=== PATIENT | male | born 1985 | race Caucasian/White ===

== ENCOUNTER 2021-06-02 17:53 | Emergency (ER) | payer BC, OTHER, SELFPAY ==
[2021-06-02 18:01] VITALS: BP 150/89; PULSE 100; RESP 16; TEMP 37.1; O2SAT 99
--- NOTE | 2021-06-02 18:17 | ED.EAR ---
HPI - Ear Problem General Chief complaint: Ear Stated complaint: Ear Pain Time Seen by Provider: 06/02/21 18:17 Source: patient Mode of arrival: ambulatory Limitations: no limitations History of Present Illness HPI Narrative: Luis M Haley is a 35 yo male with no PMH who comes to [facility] with complaints of left ear pain that started 2 days ago, his ear is edematous on outside and states that the pain has gotten worse for the last 2 days Related Data Allergies Allergy/AdvReac Type Severity Reaction Status Date / Time No Known Allergies Allergy Verified 06/02/21 18:16 Review of Systems Review of Systems: Narrative: CONSTITUTIONAL: Denies fever, chills, sweats. EYES: Denies visual changes, redness, discharge. ENT: Denies rhinorrhea, congestion, sore throat, left otalgia. CARDIOVASCULAR: Denies chest pain, palpitations, edema. RESPIRATORY: Denies dyspnea, wheezing, cough GASTROINTESTINAL: Denies abdominal pain, nausea, vomiting, diarrhea. GENITOURINARY: Denies dysuria, hematuria, abnormal discharge SKIN: Denies rash or itching. NEUROLOGIC: Denies numbness, or focal weakness. PSYCHIATRIC: Denies anxiety or depression. PMFSH Past Medical History Medical History No acute medical problems Family History Family History Grandparent Family history of cardiovascular disease Mother Family history of lung cancer Other Diabetes mellitus Social History Social History Smoking status: Never smoker Alcohol intake: never Comments At time of signature, I agree with nursing past medical, surgical, social and family history. There is no relevant family history pertinent to the presenting complaint. Blood pressure elevated due to pain Exam Narrative: Exam Narrative: GENERAL: This is a well-nourished, well-developed patient, in mild distress. HEAD: normocephalic, atraumatic. EYES: Sclera clear/white. Vision is grossly intact. EARS: External ears normal, auditory canals clear on R, L ear is edematous, tender to touch, canal edema with erythema and with drainage, TM on left difficult to visualize;hearing grossly intact. NOSE: External nose normal without nasal discharge, nares without redness, no rhinorrhea. THROAT: Mucous membranes moist, NECK: Neck supple, non-tender CARDIOVASCULAR: tachycardic rate and rhythm without murmurs, gallops, or rubs. RESPIRATORY: Clear to auscultation. Breath sounds equal bilaterally. No wheezes, rales, or rhonchi. GASTROINTESTINAL: Abdomen soft, non-tender, SKIN: warm, intact with no suspicious lesions or rash, good texture and turgor. NEURO: awake, alert, and oriented to person, place and time. There were no obvious focal neurologic abnormalities. Steady gait EXTREMITIES: Normal range of motion. BACK: Nontender without deformity Course Course Emergency Course: [facility] ear swelling and pain and exquisitely tender canal Started on prednisone, polymyxin eardrops, [place] Follow-up with PCP Vital Signs Vital signs: Vital Signs Temperature 98.7 F 06/02/21 18:01 Pulse Rate 100 06/02/21 18:01 Respiratory Rate 16 06/02/21 18:01 Blood Pressure 150/89 H 06/02/21 18:01 Pulse Oximetry 99 06/02/21 18:01 Temperature 98.7 F 06/02/21 18:01 Pulse Rate 100 06/02/21 18:01 Respiratory Rate 16 06/02/21 18:01 Blood Pressure 150/89 H 06/02/21 18:01 Pulse Oximetry 99 06/02/21 18:01 Medical Decision Making Differential Diagnosis Differential Diagnosis: Otitis media versus otitis externa versus other eustachian tube dysfunction Vital Signs Vital Signs: Vital Signs Temperature 98.7 F 06/02/21 18:01 Pulse Rate 100 06/02/21 18:01 Respiratory Rate 16 06/02/21 18:01 Blood Pressure 150/89 H 06/02/21 18:01 Pulse Oximetry 99 06/02/21 18:01 [place]
== END 2021-06-02 18:38 | disposition home or self-care (01) ==
PROVIDERS: Emergency Provider Nurse Practitioner
DX: H60.312 Diffuse otitis externa, left ear (principal)
CPT/HCPCS: 99213; G0463

== ENCOUNTER 2021-08-15 11:38 | Emergency (ER) | payer BC, OTHER, SELFPAY ==
[2021-08-15 11:47] VITALS: BP 148/96; PULSE 116; RESP 18; TEMP 38.2; O2SAT 100
--- NOTE | 2021-08-15 12:11 | ED.EAR ---
HPI - Ear Problem General Chief complaint: Ear Stated complaint: Ear Pain Source: patient and RN notes reviewed Limitations: no limitations History of Present Illness HPI Narrative: The patient, previously mostly healthy and works at a [employer] service, presents with fever, ear discomfort. Patient states he wears earplugs frequently and had prior OE; he now has a shorter couple day history of chills, and right ear discomfort with swelling and scant discharge localized to the canal. Symptoms are mild to moderate, worse with the palpation; no facial changes, diabetes known, numbness/weakness, vertigo but there is decreased hearing acuity, pain radiates anteroinferiorly to TMJ. Patient advised he has an infection and to follow-up with ENT or hospital if not improved Related Data Allergies Allergy/AdvReac Type Severity Reaction Status Date / Time No Known Allergies Allergy Verified 06/02/21 18:16 Review of Systems Review of Systems: The patient has been informed that they may have pre-hypertension or Hypertension based on a BP reading in the department. I recommend that the patient call the primary care provider listed on their discharge instructions or a physician of their choice this week to arrange follow up for further evaluation of possible pre-hypertension or Hypertension General/Constitutional: No weight loss,fever Eyes: N0: Redness,discharge Ears/Nose/Throat: No: Epistaxis, REPORTS ear discharge Respiratory: Denies: Hemoptysis Gastrointestinal: No Vomiting, Bleeding-rectal Skin: No Lumps, eruption Neurologic: No Focal Weakness,Sz Hematologic: Denies: Petechiae/Purpura Psychiatric: No: Suicida ideationl All Other Systems: Reviewed and Negative PMFSH Past Medical History Medical History No acute medical problems Family History Family History Grandparent Family history of cardiovascular disease Mother Family history of lung cancer Other Diabetes mellitus Social History Social History Smoking status: Never smoker Alcohol intake: never Comments At time of signature, agree with nursing past medical, surgical, social and family history. There is no relevant family history pertinent to the presenting complaint Exam Narrative: General Appearance: Well appearing, Well nourished, No distress EYE: PERRLA, EOMI Ears: Right EAC with near complete swelling and mild mucopus, TMs not seen; left external ear normal, Auditory canal normal Nose: Normal nose, Nares clear Mouth/Throat: Normal appearing, Normal lips Neck: Supple, No adenopathy Respiratory: Airway patent, No respiratory distress Skin: Warm, Dry Neurological: A&O x3, CN II-X intact Psychiatric: Normal mood, Normal affect Course Vital Signs Vital signs: Vital Signs Temperature 100.8 F H 08/15/21 11:47 Pulse Rate 116 H 08/15/21 11:47 Respiratory Rate 18 08/15/21 11:47 Blood Pressure 148/96 H 08/15/21 11:47 Pulse Oximetry 100 08/15/21 11:47 Temperature 100.8 F H 08/15/21 11:47 Pulse Rate 116 H 08/15/21 11:47 Respiratory Rate 18 08/15/21 11:47 Blood Pressure 148/96 H 08/15/21 11:47 Pulse Oximetry 100 08/15/21 11:47 Medical Decision Making Vital Signs Vital Signs: Vital Signs Temperature 100.8 F H 08/15/21 11:47 Pulse Rate 116 H 08/15/21 11:47 Respiratory Rate 18 08/15/21 11:47 Blood Pressure 148/96 H 08/15/21 11:47 Pulse Oximetry 100 08/15/21 11:47 Temperature 100.8 F H 08/15/21 11:47 Pulse Rate 116 H 08/15/21 11:47 Respiratory Rate 18 08/15/21 11:47 Blood Pressure 148/96 H 08/15/21 11:47 Pulse Oximetry 100 08/15/21 11:47 Lab Data Labs: Lab Results 08/15/21 Range/Units 12:18 POC Capillary Glucose 95 (65-105) mg/dl Discharge Plan Discharge Clinical Impression: Cellulit
[2021-08-15 12:20] LABS: Glucose Point of Care 95 mg/dl (65-105)
== END 2021-08-15 12:26 | disposition home or self-care (01) ==
PROVIDERS: Emergency Provider Emergency Medicine
DX: H60.11 Cellulitis of right external ear (principal); E11.9 Type 2 diabetes mellitus without complications
CPT/HCPCS: 82948; 99213; G0463

== ENCOUNTER 2021-12-13 15:42 | Emergency (ER) | payer BC, SELFPAY ==
--- NOTE | 2021-12-13 15:49 | ED.WOUNDLAC ---
HPI - Wound/Laceration General Chief Complaint: Wound/Laceration Stated Complaint: cut right leg Time Seen by Provider: 12/13/21 15:49 Source: patient, RN notes reviewed and old records reviewed Mode of arrival: ambulatory Limitations: no limitations History of Present Illness HPI narrative: 36-year-old male presents to the [facility] with a cut to the right leg. States he was working on a trailer when his leg scraped up against something. Laceration noted mid right anterior lower leg. Injury occurred approximately 1030 this morning Thinks Tdap was at least 5 years ago may be 6 Walking with a normal gait Related Data Allergies Allergy/AdvReac Type Severity Reaction Status Date / Time No Known Allergies Allergy Verified 12/13/21 15:46 Review of Systems Review of Systems: All systems reviewed & are unremarkable except as noted in HPI and below Constitutional: Constitutional: Reports no additional constitutional complaints, Denies chills and Denies fever(s) Eyes: Eyes: Reports no additional eye complaints ENT: Reports system reviewed and no additional complaints, except as documented Cardiovascular: Cardiovascular: Reports no additional cardiovascular complaints Respiratory: Respiratory: Reports no additional respiratory complaints Gastrointestinal: Gastrointestinal: Reports no additional gastrointestinal complaints Musculoskeletal: Musculoskeletal: Reports no additional musculoskeletal complaints Integumentary/Breasts: Skin/Breast: Reports as per HPI Neurologic: Reports system reviewed and no additional complaints, except as documented Allergic/Immunologic: Allergic/Immunologic: Reports no additional allergic/immunologic complaints PMFSH Past Medical History Medical History (Updated 12/13/21 @ 15:58 by Gila Reyes) No acute medical problems Psoriasis Surgical History Surgical History (Updated 12/13/21 @ 15:58 by Gila Reyes) No pertinent past surgical history Family History Family History Grandparent Family history of cardiovascular disease Mother Family history of lung cancer Other Diabetes mellitus Social History Social History Smoking status: Never smoker Alcohol intake: never Comments At the time of my signature, I reviewed and agree with the nursing past medical, surgical, social, and family history. There is no relevant family history pertinent to the patient complaint. Exam Const: General: no acute distress and alert Nutritional Appearance: well nourished and obese Orientation/consciousness: patient oriented x3 Limitations: no limitations HENMT: Head: normal to inspection Ears: external ears normal Eyes: Conjunctivae: conjunctivae normal Pupils: Equal, round and reactive pupils present Neck: Neck: normal visual inspection, no lymphadenopathy and no meningeal signs Chest: Chest palpation & inspection: normal inspection of the chest Resp: Effort & Inspection: normal respiratory effort Auscultation: clear to auscultation bilaterally Back/Spine/Pelvis: Back: no CVA tenderness Skin: General skin exam: normal color Wounds: wounds noted flap right anterior lower leg size (5.5 cm); no drainage and without any surrounding erythema Neuro: General: patient oriented x3, moves all extremities, no meningeal signs and no focal motor deficits Speech: normal speech Gait exam (Neuro): Normal gait present Extrem: General: normal to inspection Psych: Appearance: grossly normal and well kempt Mental Status: mental status grossly normal Affect: normal affect Attitude: cooperative Thought content: Yes Normal thought content present Course Course Emergency Course: Discharge instructions reviewed with patient, as well as provided in writing per nursing staff. The instructions also include specific and strict return/GO TO THE ER as well as f/u information. All questions have
[2021-12-13 15:50] VITALS: BP 147/107; PULSE 91; RESP 16; TEMP 37; O2SAT 98
[2021-12-13] MEDS: LIDOCAINE HCL 1% LOCAL INJ 20 ML VIAL 5 ML INFILTRATE (16:20)
[2021-12-13] MEDS: TETANUS,DIPHTHERIA,AC PERTUSSIS ADULT (0.5 ML) BOOSTRIX IM (16:32)
== END 2021-12-13 16:40 | disposition home or self-care (01) ==
PROVIDERS: Emergency Provider Nurse Practitioner
DX: S81.811A Laceration without foreign body, right lower leg, initial encounter (principal); W45.8XXA Other foreign body or object entering through skin, initial encounter; Z23 Encounter for immunization
CPT/HCPCS: 12002; 90471; 90715; 99213; G0463

== ENCOUNTER 2022-12-14 15:52 | Emergency (ER) | payer BC, OTHER, SELFPAY ==
--- NOTE | 2022-12-14 15:54 | ED.SKABFB ---
HPI - Skin/Abscess/Foreign Bdy General Chief complaint: Skin/Abscess/Foreign Body Stated complaint: Rash on Body Time Seen by Provider: 12/14/22 16:21 Source: patient and RN notes reviewed Mode of arrival: ambulatory Limitations: no limitations History of Present Illness HPI narrative: 37-year-old male presents with concern for psoriasis flare-up. He reports a history of psoriasis. Reports when he notices a flare he usually goes to a tanning bed and that improves his symptoms, however he tried at this time and it did not resolve his symptoms. He reports prednisone has treated his flare-ups in the past. MD complaint: rash Related Data Allergies Allergy/AdvReac Type Severity Reaction Status Date / Time No Known Allergies Allergy Verified 12/14/22 16:01 Review of Systems Review of Systems: CONSTITUTIONAL: Denies malaise, chills, sweats, or fever. ENT: Denies rhinorrhea, congestion, swollen lips, swollen tongue CARDIOVASCULAR: Denies chest pain, palpitations, or edema. RESPIRATORY: Denies cough or dyspnea. GASTROINTESTINAL: Denies abdominal pain, nausea, vomiting SKIN: Reports generalized rash MUSCULOSKELETAL: Denies joint pain or myalgia. NEUROLOGIC: Denies headache. All systems reviewed & are unremarkable except as noted in HPI and below PMFSH Past Medical History Medical History (Updated 12/14/22 @ 16:19 by Gila Lowe NP) No acute medical problems Psoriasis Surgical History Surgical History (Updated 12/13/21 @ 15:58 by Gila Reyes APRN) No pertinent past surgical history Family History Family History Grandparent Family history of cardiovascular disease Mother Family history of lung cancer Other Diabetes mellitus Social History Social History Smoking status: Never smoker Alcohol intake: never Comments At time of signature, agree with nursing past medical, surgical, social and family history. There is no relevant family history pertinent to the presenting complaint Exam Narrative: GENERAL: Well-appearing, well-nourished, and in no acute distress. HEAD: Normocephalic, atraumatic. EYES: PERRLA, conjunctivae clear, and EOMI. ENT: Mucous membranes moist. Oropharynx without edema, erythema or lesions. NECK: Supple. No lymphadenopathy CHEST: Clear to auscultation. No respiratory distress. HEART: Regular rate and rhythm. SKIN: Warm, dry. generalized plaque-like rash noted to both hands and arms with some areas of excoriation NEURO: Alert and oriented x3. PSYCH: Normal mood and affect Course Course Emergency Course: Patient is aware of diagnosis, understands and agrees to treatment plan. Anticipatory guidance given. Patient agrees to follow-up as directed and is aware of reasons to seek care at the emergency department. Portions of this record may have been created with voice recognition software Level of Care: Express Care Visit Vital Signs Vital signs: Reviewed. MDM - Skin/Abscess/Foreign Bdy MDM Narrative Medical decision making narrative: Does not appear at this time to be erythema multiforme, bullous, SJS, TEN; no evidence at this time to suggest RMSF, endocarditis or Lyme disease; patient looks well, nontoxic and is tolerating oral intake; no neurologic signs or symptoms; no headache, photophobia or neck pain; afebrile; appropriate for initial outpatient treatment; discussed the importance of follow-up, patient agrees; question, viral exanthema, contact dermatitis, allergic dermatitis, eczema, urticaria, psoriasis. No soft palate or uvula edema, no tongue, lip edema or other mucosal involvement, no respiratory compromise, no stridor, no wheezing, no wheezing, no history of syncope, no hypotension, no nausea, vomiting, or diarrhea. Instructed patient to go to nearest ER immediately for any worsening symptoms including but not limited to: fever, spreading rash, pain, sore throat,
[2022-12-14 16:00] VITALS: BP 154/97; PULSE 79; RESP 16; TEMP 36.7; O2SAT 99
[2022-12-14 16:02] VITALS: BP 154/97; PULSE 79; RESP 16; TEMP 36.7; O2SAT 99
== END 2022-12-14 16:24 | disposition home or self-care (01) ==
PROVIDERS: Emergency Provider Nurse Practitioner
DX: L40.9 Psoriasis, unspecified (principal)
CPT/HCPCS: 99213; G0463

== ENCOUNTER 2023-12-09 08:17 | Emergency (ER) | payer BC, OTHER, SELFPAY ==
[2023-12-09 09:00] VITALS: BP 141/90; PULSE 95; RESP 18; TEMP 37.3; O2SAT 98
--- NOTE | 2023-12-09 09:32 | ED.GENADULT ---
HPI - General Adult General Chief complaint: Upper Respiratory Infection Stated complaint: Sore Throat Source: patient Mode of arrival: ambulatory Limitations: no limitations History of Present Illness HPI narrative: Patient presents for evaluation of sore throat. Symptom onset 2 days ago. His children currently have strep. He has a history of psoriasis and indicates that it has flared on his trunk and extremities x 4 since the time he has experienced a sore throat. He reports fever but denies chills, nausea, vomiting, diarrhea. He has a mild cough. He does not smoke. Related Data Allergies Allergy/AdvReac Type Severity Reaction Status Date / Time No Known Allergies Allergy Verified 12/09/23 08:27 Review of Systems Review of Systems: CONSTITUTIONAL: reports fever. Denieschills, or sweats. EYES: Denies visual changes, redness, or discharge. ENT: Reports sore throat. Denies rhinorrhea, congestion, or otalgia. CARDIOVASCULAR: Denies chest pain, palpitations, or edema. RESPIRATORY: Reports cough. Denies dyspnea. GASTROINTESTINAL: Denies abdominal pain, nausea, vomiting, or diarrhea. GENITOURINARY: Denies dysuria or hematuria. SKIN:Reports psoriatic plaques to torso and extremities x 4 MUSCULOSKELETAL: Denies back pain, joint pain, or myalgia. NEUROLOGIC: Denies headache, numbness, dizziness, or weakness. PSYCHIATRIC: Denies anxiety or depression. PMFSH Past Medical History Medical History No acute medical problems Psoriasis Surgical History Surgical History No pertinent past surgical history Family History Family History Grandparent Family history of cardiovascular disease Mother Family history of lung cancer Other Diabetes mellitus Social History Social History Smoking status: Never smoker Alcohol intake: never Exam Narrative: GENERAL: Well-appearing, well-nourished, and in no acute distress. HEAD: Normocephalic, atraumatic. EYES: PERRLA and EOMI. ENT: Nares clear, no rhinorrhea or epistaxis. Mucous membranes moist. There is posterior pharyngeal erythema without exudate. Uvula is midline. Bilateral TMs pearly tenorio nonbulging NECK: Supple. No adenopathy or masses. No carotid bruits or JVD CHEST: Clear to auscultation. No respiratory distress. No wheezes rales or rhonchi HEART: Regular rate and rhythm. No murmur heard. Normal peripheral pulses. ABDOMEN: Soft, nontender, nondistended, normal active bowel sounds. EXTREMITIES: Normal range of motion. No edema. SKIN: There are psoriatic plaques noted to his torso and extremities x 4. NEURO: No focal deficits. Alert and oriented x3. PSYCH: Normal mood and affect. Course Course Emergency Course: This is a 38-year-old male who presented for evaluation of a sore throat. Rapid strep positive. Will treat with amoxicillin. His psoriasis has flared as result of this. Upon review of medical literature it appears that there is an association between psoriasis and strep throat. Will place him on oral steroid taper. Once complete he may use betamethasone. Advised he should not apply to his face. He should follow up with PCP and go to the ER for worsening symptoms. Pt in agreement with plan of care. Level of Care: Express Care Visit Vital Signs Vital signs: Vital Signs Temperature 37.3 C 12/09/23 09:00 Pulse Rate 95 12/09/23 09:00 Respiratory Rate 18 12/09/23 09:00 Blood Pressure 141/90 H 12/09/23 09:00 Pulse Oximetry 98 12/09/23 09:00 Temperature 37.3 C 12/09/23 09:00 Pulse Rate 95 12/09/23 09:00 Respiratory Rate 18 12/09/23 09:00 Blood Pressure 141/90 H 12/09/23 09:00 Pulse Oximetry 98 12/09/23 09:00 Medical Decision Making Vital Signs Vital
== END 2023-12-09 09:35 | disposition home or self-care (01) ==
PROVIDERS: Emergency Provider Nurse Practitioner
DX: J02.0 Streptococcal pharyngitis (principal); L40.9 Psoriasis, unspecified
CPT/HCPCS: 87880; 99213; G0463

== ENCOUNTER 2024-03-21 08:51 | Emergency (ER) | payer BC, OTHER, SELFPAY ==
[2024-03-21 09:04] VITALS: BP 141/97; PULSE 70; RESP 16; TEMP 36.6; O2SAT 99
--- NOTE | 2024-03-21 09:27 | ED.SKABFB ---
HPI - Skin/Abscess/Foreign Bdy General Chief complaint: Skin/Abscess/Foreign Body Stated complaint: rash on body Time Seen by Provider: 03/21/24 09:19 Source: patient, RN notes reviewed and old records reviewed Mode of arrival: ambulatory Limitations: no limitations History of Present Illness HPI narrative: Patient presents today complaining of a one-week history of psoriasis flare. States he is not 100% sure of the cause but it may have been due to a chemical exposure at work. He has not had a flare for some time and typically goes the tanning bed when this happens and can stop it from getting worse, but it has tried that and it did not work. He has also tried Vaseline. Outbreak has occurred in the groin and lower abdomen, bilateral knees, bilateral antecubital fossa, bilateral hands. Typically he uses a prednisone flare and topical steroids to resolve his rash. He does not have a PCP. Last visit to [facility] for psoriasis flare was 12/09/2023. Related Data Allergies Allergy/AdvReac Type Severity Reaction Status Date / Time No Known Allergies Allergy Verified 03/21/24 09:18 Review of Systems Review of Systems: CONSTITUTIONAL: Denies body aches, fever, chills, or sweats. EYES: Denies visual changes, redness, or discharge. ENT: Denies rhinorrhea, congestion, sore throat, or otalgia. CARDIOVASCULAR: Denies chest pain, palpitations, or edema. RESPIRATORY: Denies cough or dyspnea. GASTROINTESTINAL: Denies abdominal pain, nausea, vomiting, or diarrhea. GENITOURINARY: Denies dysuria or hematuria. SKIN: +rash MUSCULOSKELETAL: Denies back pain, joint pain, or myalgia. NEUROLOGIC: Denies headache, numbness, tingling, or weakness. PSYCH: Denies depression or anxiety. [facility] Past Medical History Medical History (Updated 03/21/24 @ 09:38 by Radha Rasmussen, NA, BC) Psoriasis Surgical History Surgical History No pertinent past surgical history Family History Family History Grandparent Family history of cardiovascular disease Mother Family history of lung cancer Other Diabetes mellitus Social History Social History Smoking status: Never smoker Alcohol intake: never Comments At time of signature, I have reviewed and agree with nursing past medical, surgical, social and family history unless otherwise noted. Please see nursing chart for further information. There is no relevant family history pertinent to the presenting complaint Exam Narrative: GENERAL: Well-appearing, well-nourished, and in no acute distress. HEAD: Normocephalic, atraumatic. EYES: EOMI. No redness or drainage. Conjunctivae normal. ENT: Mucous membranes pink and moist. NECK: Normal AROM. CHEST: No respiratory distress. EXTREMITIES: Normal range of motion. No edema. SKIN: Warm, dry. Capillary refill normal. Normal skin turgor. +clusters of silver, scaly lesions, surrounded by pink border to the bilateral patella area, bilateral antecubital fossa, groin, lower abdomen fold, bilateral dorsums of the hands. No evidence of bacterial infection. NEURO: No focal deficits. Alert and oriented x3. Gait steady. PSYCH: Normal affect. No signs of depression or anxiety. Course Course Level of Care: Express Care Visit Vital Signs Vital signs: Vital Signs Temperature 97.9 F 03/21/24 09:04 Pulse Rate 70 03/21/24 09:04 Respiratory Rate 16 03/21/24 09:04 Blood Pressure 141/97 H 03/21/24 09:04 Pulse Oximetry 99 03/21/24 09:04 Oxygen Delivery Room Air 03/21/24 09:04 Temperature 97.9 F 03/21/24 09:04 Pulse Rate 70 03/21/24 09:04 Respiratory Rate 16 03/21/24 09:04 Blood Pressure 141/97 H 03/21/24 09:04 Pulse Oximetry 99 03/21/24 09:04 Oxygen Delivery Room Air 03/21/24 09:04 Reviewed MDM - Skin/Abscess/
== END 2024-03-21 09:39 | disposition home or self-care (01) ==
PROVIDERS: Emergency Provider Nurse Practitioner
DX: L40.9 Psoriasis, unspecified (principal)
CPT/HCPCS: 99213; G0463

== ENCOUNTER 2024-10-26 08:24 | Emergency (ER) | payer BC, OTHER, SELFPAY ==
[2024-10-26 08:25] VITALS: BP 132/90; PULSE 69; RESP 18; TEMP 36.4; O2SAT 100
--- NOTE | 2024-10-26 08:27 | ED.DENTAL ---
HPI - Dental/Oral General Chief complaint: Dental/Oral Stated complaint: Dental Pain Time Seen by Provider: 10/26/24 08:29 Source: patient, RN notes reviewed and old records reviewed Mode of arrival: ambulatory Limitations: no limitations History of Present Illness HPI Narrative: 39-year-old male presents to the [facility] with complaints of dental pain. Right lower into the anterior portion. Redness and inflammation noted from premolar through the front of the gums. Has very poor dentition. States that he does have a dental appointment at [facility] next month. History of multiple extractions Onset (ago): week(s) (2) Related Data Allergies Allergy/AdvReac Type Severity Reaction Status Date / Time No Known Allergies Allergy Verified 10/26/24 08:28 Review of Systems Review of Systems: All systems reviewed & are unremarkable except as noted in HPI and below Constitutional: Constitutional: Reports no additional constitutional complaints ENT: Reports as per HPI and Reports dental pain Cardiovascular: Cardiovascular: Reports no additional cardiovascular complaints, Denies chest pain and Denies dyspnea Respiratory: Respiratory: Reports no additional respiratory complaints, Denies chest congestion, Denies cough and Denies dyspnea Gastrointestinal: Gastrointestinal: Reports no additional gastrointestinal complaints, Denies abdominal pain, Denies nausea and Denies vomiting Musculoskeletal: Musculoskeletal: Reports no additional musculoskeletal complaints Integumentary/Breasts: Skin/Breast: Reports system reviewed and no additional complaints, except as docu PMFSH Past Medical History Medical History Psoriasis Surgical History Surgical History No pertinent past surgical history Family History Family History Grandparent Family history of cardiovascular disease Mother Family history of lung cancer Other Diabetes mellitus Social History Social History Smoking status: Never smoker Alcohol intake: never Comments At the time of my signature, I reviewed and agree with the nursing past medical, surgical, social, and family history. There is no relevant family history pertinent to the patient complaint. Exam Const: General: cooperative, healthy appearing, comfortable, no acute distress, well developed, alert and well nourished Nutritional Appearance: well nourished Orientation/consciousness: patient oriented x3 Limitations: no limitations HENMT: Head: normal to inspection Ears: hearing grossly normal bilaterally and external ears normal Face/Nose/Sinus: Normal external nose present, normal facial exam and face symmetric Face and sinus: normal facial exam and face symmetric Mouth: Yes Normal oral and palatal mucosa present, Yes lip normal and Yes tongue normal Teeth and gingiva: abnormal tooth and associated gingiva (Right lower- anterior erythema to the gingiva, multiple decayed teeth) and poor dentition Eyes: General: appearance normal, both eyes and all related structures Alignment and Position: alignment normal Periorbital: periorbital findings normal Neck: Neck: normal visual inspection, full ROM, no lymphadenopathy and no meningeal signs Chest: Chest palpation & inspection: normal inspection of the chest Resp: Effort & Inspection: normal respiratory effort and able to speak in complete sentences Cardio: Rate: regular rate Skin: General skin exam: normal color and no rashes or lesions noted Lesions: no lesions Rashes: no rashes Wounds: no wounds Neuro: General: patient oriented x3, gait normal, tone normal, moves all extremities and no meningeal signs Cognition (Neuro): normal cognition Speech: normal speech Gait exam (Neuro): Normal gait present Extrem: General: normal to inspection, full ROM, capillary refill normal and normal gait Psych: Appearance: grossly normal and well kempt Mental Status: mental status grossly normal Speech and movement: Normal speech and movement present and Clear speech present Affect: normal affect Attitude: cooperative Course Course Level of Care: Express Care Visit Vital Signs Vital signs: Vital Signs Temperature 97.5 F L 10/26/24 08:25 Pulse Rate 69 10/26/24 08:25 Respiratory Rate 18 10/26/24 08:25 Blood Pressure 132/90 10/26/24 08:25 Pulse Oximetry 100 10/26/24 08:25 Oxygen Delivery Room Air 10/26/24 08:25 Temperature 97.5 F L 10/26/24 08:25 Pulse Rate 69 10/26/24 08:25 Respiratory Rate 18 10/26/24 08:25 Blood Pressure 132/90 10/26/24 08:25 Pulse Oximetry 100 10/26/24 08:25 Oxygen Delivery Room Air 10/26/24 08:25 Reviewed MDM - Dental/Oral MDM Narrative Medical decision making narrative: Patient sitting in exam room. Nontoxic, vitals stable. Patient in no acute distress. Patient presents with dental pain, multiple extracted teeth, multiple decayed teeth, significant erythema with swelling into the right lower anterior portion of the gums. Patient is appropriate for outpatient treatment with antibiotics, close follow-up which is already scheduled per patient. Discharge instructions reviewed with patient, as well as provided in writing per nursing staff. The instructions also include specific and strict return/GO TO THE ER as well as f/u information. All questions have been answered, and the patient deny any further questions with discharge and discharge plan. Some parts of this dictation were generated by voice recognition software and may contain typographical and/or grammatical inaccuracies. Differential Diagnosis Differential diagnosis: Likely gingival abscess, dental caries, toothache and dental abscess Critical Care Time Critical Care Time Critical Care Time: No Discharge Plan Discharge Clinical Impression: Dental infection, Teeth decayed Patient Disposition: Home, Self-Care Condition: Stable Instructions: Antibiotic Form, Dental Abscess (ED), Toothache (ED) Additional Instructions: Finish the entire course of antibiotics & use the mouthwash. After every time you eat be sure to use salt water rinses. Apply ice to face to help with pain. Take Tylenol alternating with Motrin as needed for pain. You can alternate every 4 hours You need to follow-up with a dental provider as soon as possible for further evaluation and treatment. A list of dental providers has been given to you Follow up with a Primary Care Provider (PCP) about medical needs. A PCP can help keep you healthy by preventive medicine and screening. Go to the ER for New or worsening symptoms. Patient Language: Lao Prescriptions: New amoxicillin 875 mg tablet 875 mg PO Q12H Qty: 20 0RF Follow-up/Referrals: UNKNOWN,DOCTOR [Non-Staff] - Stand Alone Forms: Work/School Release IP Time of Disposition: 08:37
== END 2024-10-26 08:45 | disposition home or self-care (01) ==
PROVIDERS: Emergency Provider Nurse Practitioner
DX: K04.7 Periapical abscess without sinus (principal); K02.9 Dental caries, unspecified; L40.9 Psoriasis, unspecified
CPT/HCPCS: 99213; G0463